=== PATIENT | male | born 1995 | race Two or more races ===

== ENCOUNTER 2020-08-03 21:36 | Emergency (ER) | payer SELFPAY ==
[~2020-08-03] VITALS: Ht 185.4 cm; Wt 104.5 kg
[2020-08-03] MEDS ORDERED: IBUPROFEN 800 MG TABLET PO ONE (23:45)
[2020-08-04] MEDS ORDERED: CefTRIAXone 1 GM/DEXTROSE 50 ML IV ONE (00:15)
[2020-08-04] MEDS ORDERED: MORPHINE SULFATE 4 MG/ML SYRINGE IVP ONE ×2 (00:15→01:30)
[2020-08-04] MEDS ORDERED: PERTUSS(ACELL),DIPH,TET VAC/PF 0.5 ML VIAL IM ONE (00:15)
[2020-08-04] MEDS ORDERED: LIDOCAINE 1% 10 ML VIAL ONE (01:25)
[2020-08-04] MEDS ORDERED: LIDOCAINE 1% 10 ML VIAL INJ ONE (01:30)
[2020-08-04 01:41] VITALS: BP 145/75
== END 2020-08-04 01:50 | disposition home or self-care (01) ==
LOC: EMS 21:37
DX: S62.633B Displaced fracture of distal phalanx of left middle finger, initial encounter for open fracture (principal); J45.909 Unspecified asthma, uncomplicated; F17.200 Nicotine dependence, unspecified, uncomplicated; F12.90 Cannabis use, unspecified, uncomplicated; W20.8XXA Other cause of strike by thrown, projected or falling object, initial encounter; Y93.89 Activity, other specified; Y92.89 Other specified places as the place of occurrence of the external cause; Y99.8 Other external cause status
CPT/HCPCS: 29130; 73130; 90471; 90715; 96365; 96375; 96376; 99284; J0696; J2270; J3490